=== PATIENT | male | born 1985 | race Two or more races ===

== ENCOUNTER 2020-03-31 10:48 | Emergency (ER) | payer OTHER ==
[2020-03-31 10:56] VITALS: BP 154/74
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
== END 2020-03-31 12:39 | disposition home or self-care (01) ==
LOC: ED 10:48
DX: S92.415A Nondisplaced fracture of proximal phalanx of left great toe, initial encounter for closed fracture (principal); V18.0XXA Pedal cycle driver injured in noncollision transport accident in nontraffic accident, initial encounter; Y93.55 Activity, bike riding; Y92.830 Public park as the place of occurrence of the external cause
CPT/HCPCS: 73660; 99283